=== PATIENT | male | born 2000 | race Caucasian/White ===

== ENCOUNTER 2021-11-18 15:26 | Emergency (ER) | payer MEDICAID ==
[~2021-11-18] VITALS: Ht 180.3 cm; Wt 75.0 kg
[2021-11-18 16:20] LABS: BASOPHILS % (AUTO) 0.4 % (0-1); EOSINOPHILS # (AUTO) 0.1 X10'3 (0-0.9); EOSINOPHILS % (AUTO) 1.1 % (0-6); HEMATOCRIT 46.1 % (42.0-52.0); LYMPHOCYTES # (AUTO) 1.1 X10'3 (1.1-4.8); LYMPHOCYTES % (AUTO) 16.5 % (21-51); MEAN CORPUSCULAR HEMOGLOBIN 30.5 PG (27.0-31.0); MEAN CORPUSCULAR HGB CONC 34.7 g/dL (33.0-36.5); MEAN PLATELET VOLUME 8.3 FL (7.4-10.4); MONOCYTES # (AUTO) 0.4 X10'3 (0-0.9); MONOCYTES % (AUTO) 6.3 % (2-12); NEUTROPHILS % (AUTO) 75.7 % (42-75); PLATELET COUNT 198 X10'3 (140-440); RED BLOOD COUNT 5.23 X10'6 (4.70-6.10); WHITE BLOOD COUNT 6.6 X10'3 (4.5-11.0)
[2021-11-18 16:26] LABS: GLUCOSE 88 MG/DL (70-104)
[2021-11-18 16:27] LABS: ALANINE AMINOTRANSFERASE 29 U/L (12-78); ALBUMIN 4.9 G/DL (3.4-5.0); ALKALINE PHOSPHATASE 32 IU/L (20-180); ANION GAP 7 (8-16); ASPARTATE AMINO TRANSFERASE 20 U/L (10-37); BILIRUBIN,TOTAL 6.7 MG/DL (0.1-1.0); BLOOD UREA NITROGEN 16 MG/DL (7-18); BUN/CREATININE RATIO 18.2 (5.4-32.0); CALCIUM 9.2 MG/DL (8.5-10.1); CHLORIDE 103 MMOL/L (99-107); CREATININE 0.88 MG/DL (0.60-1.10); LIPASE 80 U/L (73-393); POTASSIUM 3.9 MMOL/L (3.5-5.1); SODIUM 138 MMOL/L (135-145); TOTAL CARBON DIOXIDE 28.1 MMOL/L (24-32); eGFR > 90 ML/MIN
[2021-11-18 16:30] LABS: ALBUMIN/GLOBULIN RATIO 1.6 (1.1-1.5)
[2021-11-18] MEDS ORDERED: normal saline 1000ml 1,000 ML IV ONE (19:15)
[2021-11-18] MEDS ORDERED: LIDOcaine Viscous 15ml cup MM ONE (19:15)
[2021-11-18] MEDS ORDERED: ondansetron/PF 4mg/2ml inj IV ONE (19:15)
[2021-11-18] MEDS ORDERED: mag hydrox/Alum hydrox/simeth 30ml oral suspension PO ONE (19:15)
[2021-11-18] MEDS ORDERED: ketorolac trometh. 30mg/ml inj. IV ONE (19:15)
[2021-11-18 19:28] LABS: CLARITY,URINE CLEAR (Clear); COLOR,URINE YELLOW (Yellow); GLUCOSE, URINE NEGATIVE (Neg); KETONES,URINE 15 mg/dl (Neg); LEUKOCYTE ESTERASE ,URINE NEGATIVE (Neg); NITRITES, URINE NEGATIVE (Neg); OCCULT BLOOD,URINE NEGATIVE (Neg); PROTEIN,URINE NEGATIVE (Neg); UROBILINOGEN,URINE 0.2 E.U/dL (0.2-1.0)
--- NOTE | 2021-11-18 19:34 | NUR ---
ultrasound at bedside
[2021-11-18 19:54] LABS: UA COLLECTION TYPE VOIDED
[2021-11-18] MEDS ORDERED: pantoprazole 40mg Tablet.DR PO ONE (20:30)
[2021-11-18] MEDS ORDERED: bisacodyl 5mg tablet.DR PO ONE (20:30)
[2021-11-18] MEDS ORDERED: famotidine/PF 10 mg/ml inj IV ONE (20:30)
[2021-11-18] MEDS ORDERED: POLY119P2 PO (20:36)
[2021-11-18] MEDS ORDERED: FAMO-128 PO (20:36)
[2021-11-18] MEDS ORDERED: SILD50TA PO (20:36)
[2021-11-18 20:59] VITALS: BP 119/69
== END 2021-11-18 21:01 | disposition home or self-care (01) ==
LOC: ER 15:29
DX: R10.11 Right upper quadrant pain (principal); R53.83 Other fatigue; R50.9 Fever, unspecified; R11.2 Nausea with vomiting, unspecified; R53.1 Weakness; K59.00 Constipation, unspecified; Z79.899 Other long term (current) drug therapy
CPT/HCPCS: 36415; 76700; 80053; 81003; 83690; 85025; 96361; 96374; 96375; 99284; J1885; J2405; J3490; J7030